=== PATIENT | male | born 1980 | race African-American/Black ===

== ENCOUNTER 2021-02-25 13:01 | Emergency (ER) | payer SELFPAY ==
[~2021-02-25] VITALS: Ht 175.3 cm; Wt 83.9 kg
--- NOTE | 2021-02-25 13:01 | NUR ---
PT JOSEPHINE TO BED 03 VIA [facility].
[2021-02-25 13:05] VITALS: BP 139/78
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
--- NOTE | 2021-02-25 13:16 | NUR ---
CELI Grubbs is evaluating patient at bedside.
[2021-02-25] MEDS: methocarbamoL 500 MG TAB PO ONE (13:35)
[2021-02-25] MEDS: KETOROLAC 30 MG/ML VIAL IM ONE (13:35)
--- NOTE | 2021-02-25 13:40 | NUR ---
Patient transported to [facility] via [place] with P officer.
--- NOTE | 2021-02-25 13:50 | NUR ---
Patient states positive relief to left hand pain; rates pain 7/10.. All pt needs met. [employer] Officer remains at bedside.
--- NOTE | 2021-02-25 14:01 | NUR ---
Patient returned from [facility] via gurney. [employer] Officer remains at bedside.
--- NOTE | 2021-02-25 14:02 | NUR ---
Left hand 4th digit laceration irrigated with NS and Povidone-Iodine.
--- NOTE | 2021-02-25 14:30 | NUR ---
Patient laying in position of comfort in low-fowlers. [employer] Officer remains at bedside. Patient remains handcuffed to R rail. Bed locked in lowest position, side rails x 1, call light in reach.
--- NOTE | 2021-02-25 14:35 | NUR ---
EMT at bedside for wound dressing.
[2021-02-25] MEDS ORDERED: METH750T5 PO (14:36)
[2021-02-25] MEDS ORDERED: NAPR-54 PO (14:36)
[2021-02-25 14:50] VITALS: BP 132/78
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
== END 2021-02-25 14:50 ==
LOC: MED 13:01
DX: S61.215A Laceration without foreign body of left ring finger without damage to nail, initial encounter (principal); S80.02XA Contusion of left knee, initial encounter; S16.1XXA Strain of muscle, fascia and tendon at neck level, initial encounter; V29.9XXA Motorcycle rider (driver) (passenger) injured in unspecified traffic accident, initial encounter; Y93.89 Activity, other specified; Y92.89 Other specified places as the place of occurrence of the external cause; Y99.8 Other external cause status
CPT/HCPCS: 12001; 72050; 73130; 73562; 96372; 99284; J1885; 99283